=== PATIENT | female | born 1965 | race Two or more races ===

== ENCOUNTER 2024-02-15 09:41 | Emergency (ER) | payer MEDICAID, OTHER ==
[~2024-02-15] VITALS: Ht 162.6 cm; Wt 97.7 kg
[2024-02-15 10:31] VITALS: BP 115/72; PULSE 94; RESP 16; TEMP 98.6; O2SAT 96
[2024-02-15] MEDS ORDERED: HYDROcodone-ACET 5/325MG TAB PO ONE (10:45)
[2024-02-15] MEDS: traMADol HCL 50 MG TAB PO ONE (11:11)
[2024-02-15] MEDS ORDERED: IBUP-1456 PO (11:34)
[2024-02-15] MEDS ORDERED: METH-1182 PO (11:34)
== END 2024-02-15 11:41 | disposition home or self-care (01) ==
LOC: ER 09:41 → EDBD 09:41 → ER 11:38
DX: S16.1XXA Strain of muscle, fascia and tendon at neck level, initial encounter (principal); S39.012A Strain of muscle, fascia and tendon of lower back, initial encounter; S20.211A Contusion of right front wall of thorax, initial encounter; E11.9 Type 2 diabetes mellitus without complications; Z90.710 Acquired absence of both cervix and uterus; V43.52XA Car driver injured in collision with other type car in traffic accident, initial encounter; Y93.89 Activity, other specified; Y92.488 Other paved roadways as the place of occurrence of the external cause; Y99.8 Other external cause status
CPT/HCPCS: 71046; 72040; 72100